=== PATIENT | male | born 1985 | race Caucasian/White ===

== ENCOUNTER 2017-01-28 17:42 | Emergency (ER) | payer MEDICAID ==
[~2017-01-28] VITALS: Wt 70.0 kg
[2017-01-28] MEDS ORDERED: CYCL-319 PO (19:32)
[2017-01-28] MEDS ORDERED: IBUP-1542 PO (19:32)
[2017-01-28] MEDS ORDERED: HYDR-906 PO (19:32)
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
== END 2017-01-28 19:35 | disposition home or self-care (01) ==
LOC: E/R 17:42
DX: S80.02XA Contusion of left knee, initial encounter (principal); S39.012A Strain of muscle, fascia and tendon of lower back, initial encounter; V89.2XXA Person injured in unspecified motor-vehicle accident, traffic, initial encounter
CPT/HCPCS: 99284